=== PATIENT | male | born 2000 | race African-American/Black ===

== ENCOUNTER 2021-04-26 00:28 | Emergency (ER) | payer OTHER ==
[~2021-04-26] VITALS: Ht 180.3 cm; Wt 77.1 kg
[2021-04-26 04:30] VITALS: BP 103/47
== END 2021-04-26 04:45 | disposition home or self-care (01) ==
LOC: ER
DX: R51.9 Headache, unspecified (principal); F07.81 Postconcussional syndrome; Z20.822 Contact with and (suspected) exposure to COVID-19; J45.909 Unspecified asthma, uncomplicated